=== PATIENT | female | born 1965 | race African-American/Black ===

== ENCOUNTER 2016-07-22 11:34 | Inpatient (IN) | payer OTHER ==
[2016-07-22 12:27] VITALS: BMI 33.0
--- NOTE | 2016-07-22 13:56 | HP ---
COWS - Scale Resting Pulse: 0= HI 80 or Below Sweatin= Chills/Flushing Restless Observation: 3= Extraneous Movement Pupil Size: 2= Moderately Dilated Bone or Joint Aches: 4=Acute Joint/Muscle Pain Runny Nose/ Eye Tearin= Runny Nose/Eyes GI Upset > 30mins: 2= Nausea/Diarrhea (NAUSEA) Tremor Observation: 1= Tremor [place], Not Seen Yawning Observation: 1= 1-2x During Session Anxiety or Irritability: 2=Irritable/Anxious Goose Flesh Skin: 0=Smooth Skin COWS Score: 18 Admission ROS S - [facility] Chief Complaint: DETOX TX FOR PERCOCETS DEPENDENCE Allergies/Adverse Reactions: Allergies Allergy/AdvReac Type Severity Reaction Status Date / Time No Known Allergies Allergy Verified 07/22/16 12:50 History of Present Illness: 51 Y/O AA/FEMALE WITH A HX OF RX PERCOCETS DEPENDENCE/MISUSE SEEKING DETOX TX. FIRST TIME HERE. Exam Limitations: No Limitations - Ebola screening Have you traveled outside of the country in the last 21 days: No Have you had contact with anyone from an Ebola affected area: No Have you been sick,other than usual withdrawal symptoms: No Do you have a fever: No - Review of Systems Constitutional: Chills, Loss of Appetite, Night Sweats, Changes in sleep EENT: reports: Blurred Vision (WEARS GLASSES), Tearing, Nose Congestion, Dental Problems (UPPER/LOWER DENTURES) Respiratory: reports: No Symptoms reported Cardiac: reports: Lightheadedness, Palpitations (DUE TO ANXIETY ATTACKS) GI: reports: Constipated, Diarrhea, Nausea, Vomiting, Indigestion, Abdominal cramping : reports: No Symptoms Reported Musculoskeletal: reports: Back Pain, Joint Pain, Muscle Pain Integumentary: reports: No Symptoms Reported Neuro: reports: Headache, Tremors, Unsteady Gait, Dizziness Endocrine: reports: No Symptoms Reported Hematology: reports: Anemia (NO CURRENT MED) Psychiatric: reports: Orientated x3, Agitated, Anxious, Depressed (ON MEDS) Other Systems: Reviewed and Negative Patient History - Patient Medical History Hx Anemia: Yes (NOT CURRENTLY ON MEDS) Hx Asthma: No Hx Chronic Obstructive Pulmonary Disease (COPD): No Hx Cardiac Disorders: No Hx Hypertension: Yes (ON INDERAL) Hx Hypercholesterolemia: No HX Cerebrovascular Accident: No Hx Seizures: No Hx Diabetes: No Hx Gastrointestinal Disorders: Yes (HX ULCERATIVE COLITIS-ON LIALDA DR 1.2 GM TABS 4 TABS PO DAILY;HX DIVERTICU) Hx Genitourinary Disorders: No Hx Sexually Transmitted Disorders: No Hx Renal Disease (ESRD): No Hx Thyroid Disease: No Hx Human Immunodeficiency Virus (HIV): No (NEGATIVE HX) Hx Hepatitis C: No Hx Depression: Yes (ON MEDS) Hx Suicide Attempt: Yes (cut left wrist at age 22;DENIES CURRENT S/H/I) Hx Schizophrenia: No - Patient Surgical History Past Surgical History: Yes Hx Neurologic Surgery: No Hx Cataract Extraction: No Hx Cardiac Surgery: No Hx Lung Surgery: No Hx Breast Surgery: No Hx Breast Biopsy: No Hx Abdominal Surgery: Yes (HYSTERECTOMY 2010) Hx Appendectomy: No Hx Cholecystectomy: No Hx Genitourinary Surgery: No Hx Section: No Hx Orthopedic Surgery: No Hx Hysterectomy: Yes (PARTIAL SX IN 2010) Anesthesia Reaction: No - PPD History Previous Implant?: Yes Documented Results: Negative w/o proof Implanted On Prior R Admission?: No PPD to be Administered?: Yes - Reproductive History Patient is a Female of Child Bearing Age (11 -55 yrs old): Yes (MENOPAUSAL ) LMP comment: 2010 Patient : No - Smoking Cessation Smoking history: Former smoker Have you smoked in the past 12 months: No If you are a former smoker, when did you quit?: 2005 Hx Chewing Tobacco Use: No Initiated information on smoking cessation: No - Substance & Tx. History Hx Alcohol Use: No (DENIES) Hx Substance Use: Yes (PERCOCETS) Substance Use Type: Opiates Hx Substance Use Treatment: Yes ([facility]) - Substances Abused Percocet Route: Oral Frequency: Daily Amount used: 6 tabs. (10-325 mg.) Age of first use: 50 Date of Last Use: 07/21/16 Family Disease History - Family Disease History Family Disease History: Diabetes: Sister, Other: Mother (HTN-), Sister Admission Physical Exam BHS - Vital Signs Vital Signs: Vital Signs - 24 hr 07/22/16 12:23 Temperature 97.6 F Pulse Rate 62 Respiratory 20 Rate Blood Pressure 189/100 - Physical General Appearance: Yes: Moderate Distress, Obese, Irritable, Anxious, Other ( EMOTIONAL UPSET DUE TO BODY ACHES/DISCOMFORT.) HEENTM: Yes: EOMI, Normocephalic, LELO, Pharynx Normal, Nasal Congestion, Rhinorrhea Respiratory: Yes: Chest Non-Tender, Lungs Clear Neck: Yes: Supple, Trachea in good position Breast: Yes: Breast Exam Deferred Cardiology: Yes: Regular Rhythm, Regular Rate, S1, S2 Abdominal: Yes: Normal Bowel Sounds, Non Tender, Soft Genitourinary: Yes: Other (N/C) Back: Yes: Within Normal Limits Musculoskeletal: Yes: full range of Motion, Gait Steady, Muscle Pain Extremities: Yes: Normal Range of Motion, Non-Tender Neurological: Yes: funeral professional II-XII NML intact, Fully Oriented, Alert, Motor Strength 5/5 Integumentary: Yes: Dry, Warm Lymphatic: Yes: Within Normal Limits - Diagnostic (1) Opioid dependence with withdrawal Current Visit: Yes Status: Acute (2) History of ulcerative colitis Current Visit: Yes Status: Chronic (3) History of diverticulitis of colon Current Visit: Yes Status: Chronic (4) History of anemia Current Visit: Yes Status: Acute (5) Hypertension Current Visit: Yes Status: Chronic Qualifiers: Hypertension type: essential hypertension Qualified Code(s): I10 - Essential (primary) hypertension Cleared for Admission [facility] - Detox or Rehab [facility] Level of Care: Medically Managed Detox Regimen/Protocol: Methadone [facility] Breath Alcohol Content Breath Alcohol Content: 0 Urine Pregancy Test - Result Urine Test Results: Negative- NO Line Present Urine Drug Screen - Results Drug Screen Negative: No Urine Drug Screen Results: OXY-Oxycodone
[2016-07-22] MEDS ORDERED: P-EPHED 60MG/TRIPROLIDI 2.5MG TABLET PO PRN (14:18)
[2016-07-22] MEDS ORDERED: diphenhydrAMINE HCL 50 MG CAPSULE PO PRN (14:18)
[2016-07-22] MEDS ORDERED: MAGNESIUM CITRATE 300 ML BOTTLE PO PRN (14:18)
[2016-07-22] MEDS ORDERED: LOPERAMIDE HCL 2 MG CAPSULE PO PRN (14:18)
[2016-07-22] MEDS ORDERED: MENTHOL/PHENOL 1 EACH UD MM PRN (14:18)
[2016-07-22] MEDS ORDERED: guaiFENesin/D-METHORPHAN HB 10 ML UNIT-DOSE CUPS PO PRN (14:18)
[2016-07-22] MEDS ORDERED: PATIENT'S OWN MEDICATION (NON-FORMULARY) (Metronidazole [Flagyl -] 500 MG) PO SCH (14:30)
[2016-07-22] MEDS ORDERED: METHADONE HCL 10 MG TABLET (FOR DETOX USE ONLY) PO ONE ×2 (14:38→23:00)
[2016-07-22] MEDS: MESALAMINE PO SCH (16:01)
[2016-07-22] MEDS: PATIENT'S OWN MEDICATION (NON-FORMULARY) (Ciprofloxacin [Cipro -] 500 MG) PO SCH (17:59)
[2016-07-22] MEDS: IBUPROFEN 400 MG TABLET (FP) PO PRN (18:27)
[2016-07-22] MEDS: diazePAM 5 MG TABLET PO PRN ×2 (18:27→22:38)
[2016-07-22 20:34] LABS: URINE APPEARANCE CLEAR; URINE BILIRUBIN NEGATIVE (NEGATIVE); URINE BLOOD NEGATIVE (NEGATIVE); URINE COLOR COLORLESS; URINE GLUCOSE (UA) 1+ (NEGATIVE); URINE KETONE NEGATIVE (NEGATIVE); URINE LEUK ESTERASE NEGATIVE (NEGATIVE); URINE NITRITE NEGATIVE (NEGATIVE); URINE PROTEIN NEGATIVE (NEGATIVE); URINE UROBILINOGEN NEGATIVE E.U./dl (0.2-1.0)
[2016-07-22] MEDS: PROPRANOLOL HCL 10 MG TABLET (FP) PO SCH (22:38)
[2016-07-22] MEDS: CYCLOBENZAPRINE HCL 10 MG TABLET (FP) PO SCH (22:38)
[2016-07-22] MEDS: THIAMINE HCL 100 MG TABLET (FP) PO SCH (22:39)
[2016-07-22] MEDS: MAG HYDROX/AL HYDROX/SIMETH 30 ML UNIT-DOSE CUP PO PRN (22:47)
[2016-07-22] MEDS: PATIENT'S OWN MEDICATION (NON-FORMULARY) (Metronidazole [Flagyl -] 500 MG) PO SCH (22:54)
[2016-07-23] MEDS: PATIENT'S OWN MEDICATION (NON-FORMULARY) (Ciprofloxacin [Cipro -] 500 MG) PO SCH ×2 (06:47→17:49)
[2016-07-23] MEDS: PATIENT'S OWN MEDICATION (NON-FORMULARY) (Metronidazole [Flagyl -] 500 MG) PO SCH ×3 (06:48→22:46)
[2016-07-23] MEDS: CYCLOBENZAPRINE HCL 10 MG TABLET (FP) PO SCH ×3 (06:48→22:45)
[2016-07-23] MEDS: PROPRANOLOL HCL 10 MG TABLET (FP) PO SCH ×3 (06:48→23:50)
[2016-07-23] MEDS: MAGNESIUM HYDROX 2400MG/30ML ORAL SUSPENSION 30 ML CUP PO PRN (06:51)
[2016-07-23] MEDS ORDERED: HYDROCORTISONE 1% TOPICAL CREAM 30 GM TUBE TP PRN (09:41)
[2016-07-23] MEDS ORDERED: ERGOCALCIFEROL (VITAMIN D2) 50,000 UNIT CAPSULE (FP) PO SCH (10:00)
[2016-07-23] MEDS ORDERED: METHADONE HCL 10 MG TABLET (FOR DETOX USE ONLY) PO ONE (10:00)
[2016-07-23 10:07] LABS: MCH 27.5 pg (25.7-33.7); MCHC 33.7 g/dl (32.0-36.0); MEAN CELL VOLUME 81.6 fl (80-96); PLATELET COUNT 256 K/MM3 (134-434); WHITE BLOOD COUNT 5.5 K/mm3 (4.0-10.0)
[2016-07-23 10:30] LABS: ALBUMIN 4.4 g/dl (3.4-5.0); BILIRUBIN,TOTAL 0.4 mg/dL (0.2-1.0); CALCIUM 9.6 mg/dL (8.5-10.1); TOT PROT 7.9 g/dl (6.4-8.2)
--- NOTE | 2016-07-23 10:57 | PN ---
S COWS - Scale Resting Pulse: 0= [place] 80 or Below Sweatin=Flushed/Facial Moisture Restless Observation: 1= Difficult to Sit Still Pupil Size: 0= Normal to Room Light Bone or Joint Aches: 2= Severe Diffuse Aches Runny Nose/ Eye Tearin= Runny Nose/Eyes GI Upset > 30mins: 2= Nausea/Diarrhea Tremor Observation of Outstretched Hands: 2= Slight Tremor Visible Yawning Observation: 2= >3x During Session Anxiety or Irritability: 2=Irritable/Anxious Goose Flesh Skin: 3=Piloerection COWS Score: 18 S Progress Note (SOAP) Subjective: nausea chills sweats body aches teary eyes Objective: 07/23/16 10:54 Vital Signs Temperature 97.7 F 07/23/16 10:39 Pulse Rate 58 L 07/23/16 10:39 Respiratory Rate 16 07/23/16 10:39 Blood Pressure 143/85 07/23/16 10:39 O2 Sat by Pulse Oximetry (%) Laboratory Tests 07/22/16 07/23/16 07/23/16 15:00 06:00 06:00 WBC 5.5 RBC 4.26 Hgb 11.7 Hct 34.8 MCV 81.6 MCHC 33.7 RDW 17.0 H Plt Count 256 MPV 10.0 Sodium 142 Potassium 3.9 Chloride 106 Carbon Dioxide 26 Anion Gap 10 BUN 12 Creatinine 1.0 Creat Clearance w eGFR 58.93 Random Glucose 102 Calcium 9.6 Total Bilirubin 0.4 AST 24 ALT 37 Alkaline Phosphatase 170 H Total Protein 7.9 Albumin 4.4 Urine Color Colorless Urine Appearance Clear Urine pH 7.0 Ur Specific [place] 1.005 Urine Protein Negative Urine Glucose (UA) 1+ H Urine Ketones Negative Urine Blood Negative Urine Nitrite Negative Urine Bilirubin Negative Urine Urobilinogen Negative Ur Leukocyte Esterase Negative awake/alert ambulating no acute distress Assessment: 07/23/16 10:55 withdrawal sx Plan: continue detox increase fluids
[2016-07-23] MEDS: PRENATAL VITAMINS W/ FOLIC ACID TABLET (FP) PO SCH (11:30)
[2016-07-23] MEDS: MESALAMINE PO SCH (11:31)
[2016-07-23] MEDS: diazePAM 5 MG TABLET PO PRN ×3 (11:33→22:46)
[2016-07-23 11:55] LABS: SICKLE CELL SCREEN NEGATIVE (NEGATIVE)
[2016-07-23] MEDS: GABAPENTIN 400 MG CAPSULE (FP) PO SCH ×2 (13:43→22:45)
--- NOTE | 2016-07-23 15:27 | CONSULT ---
[facility] Psychiatric Consult - Data Date of interview: 07/23/16 Admission source: [facility] Identifying data: First admission to [facility] for this 51 y/o AA female seeking detox treatment for opiate dependence.Patient is ,a mother of six ,domiciled,unemployed and supported on Public Assistance. Substance Abuse History: - Smoking Cessation. Smoking history: Former smoker. Have you smoked in the past 12 months: No. If you are a former smoker, when did you quit?: 2005. Hx Chewing Tobacco Use: No. Initiated information on smoking cessation: No. - Substance & Tx. History. Hx Alcohol Use: No (DENIES) . Hx Substance Use: Yes (PERCOCETS). Substance Use Type: Opiates. Hx Substance Use Treatment: Yes ([facility] - Substances Abused. Percocet. Route: Oral. Frequency: Daily. Amount used: 6 tabs. (10 -325 mg.). Age of first use: 50. Date of Last Use: 07/21/16. Confirmed by patient. Medical History: Anemia,diverticulosis,ulcerative colitis and history of partial hysterectomy (2010). Psychiatric History: Diagnosed with Bipolar Disorder.Prescibed seroquel 300 mg/ hs + wellbutrin and propanolol.Patient reports a history of more than five psychiatric hospitalizations.Known to [facility] and [facility].Ms López gets OPD care at the [facility] located in [place], [place].Patient denies history of suicide attempts. Physical/Sexual Abuse/Trauma History: Patient denies. Additional Comment: Urine Drug Screen Results: OXY-Oxycodone.Noted. Mental Status Exam - Mental Status Exam Alert and Oriented to: Time, Place, Person Cognitive Function: Good Patient Appearance: Well Groomed Mood: Hopeful, Euthymic Affect: Appropriate, Normal Range Patient Behavior: Fatigued, Appropriate, Cooperative Speech Pattern: Clear, Appropriate Voice Loudness: Normal Thought Process: Goal Oriented Thought Disorder: Not Present Hallucinations: Denies Suicidal Ideation: Denies Homicidal Ideation: Denies Insight/Judgement: Fair Sleep: Poorly Appetite: Good Muscle strength/Tone: Normal Gait/Station: Normal Psychiatric Findings - Problem List ([place] 1, 2,3) (1) Opioid dependence with withdrawal Current Visit: Yes Status: Acute (2) Bipolar disorder Current Visit: Yes Status: Chronic (3) History of anemia Current Visit: Yes Status: Acute (4) History of diverticulitis of colon Current Visit: Yes Status: Chronic (5) History of ulcerative colitis Current Visit: Yes Status: Chronic (6) Hypertension Current Visit: Yes Status: Chronic Qualifiers: Hypertension type: essential hypertension Qualified Code(s): I10 - Essential (primary) hypertension (7) Insomnia Current Visit: Yes Status: Acute - Initial Treatment Plan Initial Treatment Plan: Psychoeducation.Detoxification.Medications : seroquel 200 mg po hs (reduced) + wellbutrin XL 300 mg po daily.Side effects/benefits discussed with patient.Made aware of risk for ovsersedation/falls,abnormal involuntary movements,metabolic syndrome,seizures.She reports no prior history of adverse effects and she is eager to resume her medications.Confirmed by pharmacy claims of 07/21/16.NO need for scripts at discharge.Observation.Will titrate seroquel as clinically indicated.
[2016-07-23] MEDS: IBUPROFEN 400 MG TABLET (FP) PO PRN (15:43)
--- NOTE | 2016-07-23 16:30 | EKG ---
Test Reason : Blood Pressure : / mmHG Vent. Rate : 061 BPM Atrial Rate : 061 BPM P-R Int : 144 ms QRS Dur : 082 ms QT Int : 410 ms P-R-T Axes : 029 012 038 degrees QTc Int : 412 ms NORMAL SINUS RHYTHM MINIMAL VOLTAGE CRITERIA FOR LVH, MAY BE NORMAL VARIANT T WAVE ABNORMALITY, CONSIDER ANTEROLATERAL ISCHEMIA ABNORMAL ECG NO PREVIOUS ECGS AVAILABLE Confirmed by KATTY CHEN MD ([id number]) on 07/23/2016 4:30:20 PM Referred By: Confirmed By:KATTY CHEN MD
[2016-07-23] MEDS: MAG HYDROX/AL HYDROX/SIMETH 30 ML UNIT-DOSE CUP PO PRN (17:48)
[2016-07-23] MEDS: THIAMINE HCL 100 MG TABLET (FP) PO SCH (22:45)
[2016-07-23] MEDS: QUEtiapine FUMARATE 200 MG TABLET PO SCH (22:46)
[2016-07-24] MEDS: PROPRANOLOL HCL 10 MG TABLET (FP) PO SCH ×3 (06:24→22:42)
[2016-07-24] MEDS: CYCLOBENZAPRINE HCL 10 MG TABLET (FP) PO SCH ×3 (06:25→22:42)
[2016-07-24] MEDS: PATIENT'S OWN MEDICATION (NON-FORMULARY) (Metronidazole [Flagyl -] 500 MG) PO SCH ×3 (06:26→22:43)
[2016-07-24] MEDS: GABAPENTIN 400 MG CAPSULE (FP) PO SCH ×3 (06:26→22:42)
[2016-07-24] MEDS: PATIENT'S OWN MEDICATION (NON-FORMULARY) (Ciprofloxacin [Cipro -] 500 MG) PO SCH ×2 (06:28→17:09)
[2016-07-24] MEDS: ACETAMINOPHEN 325 MG TABLET (FP) PO PRN ×3 (08:00→17:10)
[2016-07-24] MEDS ORDERED: METHADONE HCL 5 MG TABLET (FOR DETOX USE ONLY) PO ONE (10:00)
[2016-07-24] MEDS: PATIENT'S OWN MEDICATION (NON-FORMULARY) (Diclofenac Sodium [Diclofenac Sodium Er] 100 MG) PO SCH (10:27)
[2016-07-24] MEDS: MESALAMINE PO SCH (10:29)
[2016-07-24] MEDS: PRENATAL VITAMINS W/ FOLIC ACID TABLET (FP) PO SCH (10:29)
[2016-07-24] MEDS: diazePAM 5 MG TABLET PO PRN ×2 (10:33→22:42)
--- NOTE | 2016-07-24 11:34 | PN ---
S COWS - Scale Resting Pulse: 0= [place] 80 or Below Sweatin=Flushed/Facial Moisture Restless Observation: 1= Difficult to Sit Still Pupil Size: 0= Normal to Room Light Bone or Joint Aches: 2= Severe Diffuse Aches Runny Nose/ Eye Tearin= Nasal Congestion GI Upset > 30mins: 0= None Tremor Observation of Outstretched Hands: 2= Slight Tremor Visible Yawning Observation: 2= >3x During Session Anxiety or Irritability: 2=Irritable/Anxious Goose Flesh Skin: 3=Piloerection COWS Score: 15 BHS Progress Note (SOAP) Subjective: agitation anxiety sweats back pain shakes Objective: 07/24/16 11:33 Vital Signs Temperature 97.9 F 07/24/16 10:17 Pulse Rate 67 07/24/16 10:17 Respiratory Rate 16 07/24/16 10:17 Blood Pressure 125/81 07/24/16 10:17 O2 Sat by Pulse Oximetry (%) Laboratory Tests 07/22/16 07/23/16 07/23/16 15:00 06:00 06:00 WBC 5.5 RBC 4.26 Hgb 11.7 Hct 34.8 MCV 81.6 MCHC 33.7 RDW 17.0 H Plt Count 256 MPV 10.0 Sickle Cell Screen Negative Sodium 142 Potassium 3.9 Chloride 106 Carbon Dioxide 26 Anion Gap 10 BUN 12 Creatinine 1.0 Creat Clearance w eGFR 58.93 Random Glucose 102 Calcium 9.6 Total Bilirubin 0.4 AST 24 ALT 37 Alkaline Phosphatase 170 H Total Protein 7.9 Albumin 4.4 Urine Color Colorless Urine Appearance Clear Urine pH 7.0 Ur Specific [place] 1.005 Urine Protein Negative Urine Glucose (UA) 1+ H Urine Ketones Negative Urine Blood Negative Urine Nitrite Negative Urine Bilirubin Negative Urine Urobilinogen Negative Ur Leukocyte Esterase Negative RPR Titer 07/23/16 06:00 WBC RBC Hgb Hct MCV MCHC RDW Plt Count MPV Sickle Cell Screen Sodium Potassium Chloride Carbon Dioxide Anion Gap BUN Creatinine Creat Clearance w eGFR Random Glucose Calcium Total Bilirubin AST ALT Alkaline Phosphatase Total Protein Albumin Urine Color Urine Appearance Urine pH Ur Specific [place] Urine Protein Urine Glucose (UA) Urine Ketones Urine Blood Urine Nitrite Urine Bilirubin Urine Urobilinogen Ur Leukocyte Esterase RPR Titer Nonreactive awake/alert ambulating no acute distress Assessment: 07/24/16 11:33 withdrawal sx Plan: continue detox increase fluids lidocaine patch
[2016-07-24] MEDS: LIDOCAINE 5% TOPICAL PATCH TP SCH (12:26)
[2016-07-24] MEDS: QUEtiapine FUMARATE 200 MG TABLET PO SCH (22:42)
[2016-07-24] MEDS: THIAMINE HCL 100 MG TABLET (FP) PO SCH (22:43)
[2016-07-24] MEDS: MAGNESIUM HYDROX 2400MG/30ML ORAL SUSPENSION 30 ML CUP PO PRN (22:50)
[2016-07-25] MEDS: PROPRANOLOL HCL 10 MG TABLET (FP) PO SCH ×3 (05:47→22:39)
[2016-07-25] MEDS: PATIENT'S OWN MEDICATION (NON-FORMULARY) (Metronidazole [Flagyl -] 500 MG) PO SCH ×3 (05:47→22:39)
[2016-07-25] MEDS: PATIENT'S OWN MEDICATION (NON-FORMULARY) (Ciprofloxacin [Cipro -] 500 MG) PO SCH ×2 (05:48→17:30)
[2016-07-25] MEDS: CYCLOBENZAPRINE HCL 10 MG TABLET (FP) PO SCH ×3 (05:49→22:38)
[2016-07-25] MEDS: GABAPENTIN 400 MG CAPSULE (FP) PO SCH ×3 (05:49→22:40)
[2016-07-25] MEDS ORDERED: METHADONE HCL 5 MG TABLET (FOR DETOX USE ONLY) PO ONE (10:00)
[2016-07-25] MEDS: PATIENT'S OWN MEDICATION (NON-FORMULARY) (Diclofenac Sodium [Diclofenac Sodium Er] 100 MG) PO SCH (11:22)
[2016-07-25] MEDS: LIDOCAINE 5% TOPICAL PATCH TP SCH (11:24)
[2016-07-25] MEDS: MESALAMINE PO SCH (11:25)
[2016-07-25] MEDS: PRENATAL VITAMINS W/ FOLIC ACID TABLET (FP) PO SCH (11:25)
[2016-07-25] MEDS: diazePAM 5 MG TABLET PO PRN (11:27)
--- NOTE | 2016-07-25 17:21 | PN ---
S Progress Note (SOAP) Subjective: Nausea, H/A, Sweating, Interrupted sleep, Tremors, Body aches. Objective: PT. A & O X 2 (DISORIENTED ABOUT DAY / DATE). PT. OBSERVED AMBULATING ON UNIT. 07/25/16 17:19 Vital Signs Temperature 97.4 F L 07/25/16 14:37 Pulse Rate 76 07/25/16 14:37 Respiratory Rate 18 07/25/16 14:37 Blood Pressure 133/92 07/25/16 14:37 O2 Sat by Pulse Oximetry (%) Laboratory Last Values WBC 5.5 K/mm3 (4.0-10.0) 07/23/16 06:00 RBC 4.26 M/mm3 (3.60-5.2) 07/23/16 06:00 Hgb 11.7 GM/dL (10.7-15.3) 07/23/16 06:00 Hct 34.8 % (32.4-45.2) 07/23/16 06:00 MCV 81.6 fl (80-96) 07/23/16 06:00 MCHC 33.7 g/dl (32.0-36.0) 07/23/16 06:00 RDW 17.0 % (11.6-15.6) H 07/23/16 06:00 Plt Count 256 K/MM3 (134-434) 07/23/16 06:00 MPV 10.0 fl (7.5-11.1) 07/23/16 06:00 Sickle Cell Screen Negative (NEGATIVE) 07/23/16 06:00 Sodium 142 mmol/L (136-145) 07/23/16 06:00 Potassium 3.9 mmol/L (3.5-5.1) 07/23/16 06:00 Chloride 106 mmol/L (98-107) 07/23/16 06:00 Carbon Dioxide 26 mmol/L (21-32) 07/23/16 06:00 Anion Gap 10 (8-16) 07/23/16 06:00 BUN 12 mg/dL (7-18) 07/23/16 06:00 Creatinine 1.0 mg/dL (0.55-1.02) 07/23/16 06:00 Creat Clearance w eGFR 58.93 (>60) 07/23/16 06:00 Random Glucose 102 mg/dL (74-106) 07/23/16 06:00 Calcium 9.6 mg/dL (8.5-10.1) 07/23/16 06:00 Total Bilirubin 0.4 mg/dL (0.2-1.0) 07/23/16 06:00 AST 24 U/L (15-37) 07/23/16 06:00 ALT 37 U/L (12-78) 07/23/16 06:00 Alkaline Phosphatase 170 U/L (45-117) H 07/23/16 06:00 Total Protein 7.9 g/dl (6.4-8.2) 07/23/16 06:00 Albumin 4.4 g/dl (3.4-5.0) 07/23/16 06:00 Urine Color Colorless 07/22/16 15:00 Urine Appearance Clear 07/22/16 15:00 Urine pH 7.0 (5.0-8.0) 07/22/16 15:00 Ur Specific [place] 1.005 (1.001-1.035) 07/22/16 15:00 Urine Protein Negative (NEGATIVE) 07/22/16 15:00 Urine Glucose (UA) 1+ (NEGATIVE) H 07/22/16 15:00 Urine Ketones Negative (NEGATIVE) 07/22/16 15:00 Urine Blood Negative (NEGATIVE) 07/22/16 15:00 Urine Nitrite Negative (NEGATIVE) 07/22/16 15:00 Urine Bilirubin Negative (NEGATIVE) 07/22/16 15:00 Urine Urobilinogen Negative E.U./dl (0.2-1.0) 07/22/16 15:00 Ur Leukocyte Esterase Negative (NEGATIVE) 07/22/16 15:00 RPR Titer Nonreactive (NONREACTIVE) 07/23/16 06:00 LABS NOTED. Assessment: 07/25/16 17:20 WITHDRAWAL SYMPTOMS. Plan: CONTINUE DETOX. ADVISED PATIENT TO FOLLOW-UP WITH [facility] / REHAB MEDICAL PROVIDER AFTER DISCHARGE FROM DETOX FOR GENERAL MEDICAL ASSESSMENT AND FOR ABNORMAL ADMISSION LAB VALUES.
[2016-07-25] MEDS: MAG HYDROX/AL HYDROX/SIMETH 30 ML UNIT-DOSE CUP PO PRN (19:50)
[2016-07-25] MEDS: QUEtiapine FUMARATE 200 MG TABLET PO SCH (22:40)
[2016-07-25] MEDS: THIAMINE HCL 100 MG TABLET (FP) PO SCH (22:40)
[2016-07-26] MEDS: CYCLOBENZAPRINE HCL 10 MG TABLET (FP) PO SCH ×3 (06:10→22:35)
[2016-07-26] MEDS: PROPRANOLOL HCL 10 MG TABLET (FP) PO SCH ×3 (06:10→22:35)
[2016-07-26] MEDS: hydrOXYzine PAMOATE 25 MG CAPSULE (FP) PO PRN ×2 (06:17→12:10)
[2016-07-26] MEDS: PATIENT'S OWN MEDICATION (NON-FORMULARY) (Ciprofloxacin [Cipro -] 500 MG) PO SCH ×2 (06:18→17:26)
[2016-07-26] MEDS: GABAPENTIN 400 MG CAPSULE (FP) PO SCH ×3 (06:18→22:35)
[2016-07-26] MEDS: PATIENT'S OWN MEDICATION (NON-FORMULARY) (Metronidazole [Flagyl -] 500 MG) PO SCH ×3 (06:18→22:35)
[2016-07-26] MEDS: ACETAMINOPHEN 325 MG TABLET (FP) PO PRN ×2 (06:19→12:08)
[2016-07-26] MEDS ORDERED: METHADONE HCL 10 MG TABLET (FOR DETOX USE ONLY) PO ONE (10:00)
[2016-07-26] MEDS: PATIENT'S OWN MEDICATION (NON-FORMULARY) (Diclofenac Sodium [Diclofenac Sodium Er] 100 MG) PO SCH (10:47)
[2016-07-26] MEDS: MESALAMINE PO SCH (10:47)
[2016-07-26] MEDS: PRENATAL VITAMINS W/ FOLIC ACID TABLET (FP) PO SCH (10:47)
[2016-07-26] MEDS: LIDOCAINE 5% TOPICAL PATCH TP SCH (10:50)
[2016-07-26] MEDS: MAG HYDROX/AL HYDROX/SIMETH 30 ML UNIT-DOSE CUP PO PRN (10:51)
--- NOTE | 2016-07-26 16:23 | PN ---
S Progress Note (SOAP) Subjective: Nausea, tremor, chills, sweating, interrupted sleep Objective: 07/26/16 16:22 Last Vital Signs Temp Pulse Resp BP Pulse Ox 98.2 F 72 18 139/91 07/26/16 14:24 07/26/16 14:24 07/26/16 14:24 07/26/16 14:24 Laboratory Tests 07/22/16 07/23/16 07/23/16 15:00 06:00 06:00 WBC 5.5 RBC 4.26 Hgb 11.7 Hct 34.8 MCV 81.6 MCHC 33.7 RDW 17.0 H Plt Count 256 MPV 10.0 Sickle Cell Screen Negative Sodium 142 Potassium 3.9 Chloride 106 Carbon Dioxide 26 Anion Gap 10 BUN 12 Creatinine 1.0 Creat Clearance w eGFR 58.93 Random Glucose 102 Calcium 9.6 Total Bilirubin 0.4 AST 24 ALT 37 Alkaline Phosphatase 170 H Total Protein 7.9 Albumin 4.4 Urine Color Colorless Urine Appearance Clear Urine pH 7.0 Ur Specific [place] 1.005 Urine Protein Negative Urine Glucose (UA) 1+ H Urine Ketones Negative Urine Blood Negative Urine Nitrite Negative Urine Bilirubin Negative Urine Urobilinogen Negative Ur Leukocyte Esterase Negative RPR Titer 07/23/16 06:00 WBC RBC Hgb Hct MCV MCHC RDW Plt Count MPV Sickle Cell Screen Sodium Potassium Chloride Carbon Dioxide Anion Gap BUN Creatinine Creat Clearance w eGFR Random Glucose Calcium Total Bilirubin AST ALT Alkaline Phosphatase Total Protein Albumin Urine Color Urine Appearance Urine pH Ur Specific [place] Urine Protein Urine Glucose (UA) Urine Ketones Urine Blood Urine Nitrite Urine Bilirubin Urine Urobilinogen Ur Leukocyte Esterase RPR Titer Nonreactive Labs noted: UA: 1+ glucose Assessment: 07/26/16 16:22 Withdrawal symptoms Noted with glycosuria Plan: Continue detox Glycosuria: encouraged to drink lots of water, check finger stick ac meal, consider starting oral antidiabetic if warranted, insulin lispro sliding scale with coverage
[2016-07-26] MEDS: THIAMINE HCL 100 MG TABLET (FP) PO SCH (22:36)
[2016-07-26] MEDS: QUEtiapine FUMARATE 200 MG TABLET PO SCH (22:36)
[2016-07-27] MEDS: PATIENT'S OWN MEDICATION (NON-FORMULARY) (Ciprofloxacin [Cipro -] 500 MG) PO SCH (05:58)
[2016-07-27] MEDS ORDERED: METHADONE HCL 5 MG TABLET (FOR DETOX USE ONLY) PO ONE (06:00)
[2016-07-27] MEDS: CYCLOBENZAPRINE HCL 10 MG TABLET (FP) PO SCH (06:00)
[2016-07-27] MEDS: GABAPENTIN 400 MG CAPSULE (FP) PO SCH (06:00)
[2016-07-27] MEDS: PROPRANOLOL HCL 10 MG TABLET (FP) PO SCH (06:00)
[2016-07-27] MEDS: PATIENT'S OWN MEDICATION (NON-FORMULARY) (Metronidazole [Flagyl -] 500 MG) PO SCH (06:00)
[2016-07-27] MEDS ORDERED: INSULIN SLIDING SCALE (NOVOLOG) 1 VIAL SQ SCH (07:00)
[2016-07-27 07:06] VITALS: TEMP 98.1
--- NOTE | 2016-07-27 08:53 | DS ---
[facility] Detox Discharge Summary Admission Date: 07/22/16 Discharge Date: 07/27/16 - History Present History: Opioid Dependence - Physical Exam Results Vital Signs: Vital Signs Temperature 98.1 F 07/27/16 07:05 Pulse Rate 74 07/27/16 07:05 Respiratory Rate 18 07/27/16 07:05 Blood Pressure 114/21 07/27/16 07:05 O2 Sat by Pulse Oximetry (%) - Treatment Hospital Course: Detox Protocol Followed, Detoxed Safely, Responded well, Discharged Condition Good - Medication Discharge Medications: Ambulatory Orders Bupropion HCl [Bupropion Xl] 300 mg PO AM 07/22/16 Ciprofloxacin [Cipro (Restricted To Id)] 500 mg PO BID 07/22/16 Cyanocobalamin [Vitamin B12 -] 100 mcg PO DAILY 07/22/16 Cyanocobalamin [Vitamin B12 -] 100 mcg PO DAILY 07/22/16 Diclofenac Sodium [Diclofenac Sodium ER] 100 mg PO DAILY 07/22/16 Gabapentin [Neurontin -] 400 mg PO TID 07/22/16 Mesalamine [Lialda] 4 tab PO DAILY 07/22/16 Metronidazole [Flagyl -] 500 mg PO Q8H 07/22/16 Omeprazole 40 mg PO DAILY 07/22/16 Propranolol HCl [Inderal -] 10 mg PO TID 07/22/16 Quetiapine Fumarate [Seroquel -] 300 mg PO HS 07/22/16 Tizanidine HCl [Zanaflex] 4 mg PO TID PRN 07/22/16 - Diagnosis (1) History of anemia Current Visit: Yes Status: Chronic (2) Opioid dependence with withdrawal Current Visit: Yes Status: Chronic (3) Bipolar disorder Current Visit: Yes Status: Chronic (4) History of diverticulitis of colon Current Visit: Yes Status: Chronic (5) History of ulcerative colitis Current Visit: Yes Status: Chronic (6) Hypertension Current Visit: Yes Status: Chronic Qualifiers: Hypertension type: essential hypertension Qualified Code(s): I10 - Essential (primary) hypertension - AMA Did Patient Leave Against Medical Advice: No
[2016-07-27] MEDS: LIDOCAINE 5% TOPICAL PATCH TP SCH (09:20)
[2016-07-27] MEDS: MAG HYDROX/AL HYDROX/SIMETH 30 ML UNIT-DOSE CUP PO PRN (09:20)
[2016-07-27] MEDS: ACETAMINOPHEN 325 MG TABLET (FP) PO PRN (09:22)
[2016-07-27 09:56] VITALS: BP 140/88; PULSE 86
== END 2016-07-27 09:58 | disposition home or self-care (01) | DRG 773 ==
LOC: YASAS 11:34 → Y6N 13:54
PROVIDERS: ADMIT Internal Medicine Addiction Medicine; ATTEND Internal Medicine Addiction Medicine
PROC: HZ2ZZZZ Detoxification Services for Substance Abuse Treatment (ICD-10-PCS; principal; 2016-07-27)
DX: F11.23 Opioid dependence with withdrawal (principal); F31.9 Bipolar disorder, unspecified; G47.00 Insomnia, unspecified; I10 Essential (primary) hypertension; D64.9 Anemia, unspecified; Z87.19 Personal history of other diseases of the digestive system
CPT/HCPCS: 36415; 80053; 81003; 85027; 85660; 86593; 93005; 93010

== ENCOUNTER 2020-11-18 13:46 | Emergency (ER) | payer OTHER ==
[2020-11-18 14:38] VITALS: BMI 30.2
[2020-11-18 15:31] LABS: BASO % 0.7 % (0-2.0); EOS % 4.2 % (0-4.5); HEMATOCRIT 37.1 % (32.4-45.2); HEMOGLOBIN 13.2 GM/dL (10.7-15.3); LYMPH % 62.1 % (8-40); MCH 32.4 pg (25.7-33.7); MCHC 35.5 g/dl (32.0-36.0); MEAN CELL VOLUME 91.3 fl (80-96); MEAN PLT VOLUME 8.5 fl (7.5-11.1); MONO % 5.4 % (3.8-10.2); NEUT % 27.6 % (42.8-82.8); PLATELET COUNT 250 10^3/uL (134-434); RBC 4.07 M/mm3 (3.60-5.2); RDW 15.1 % (11.6-15.6); WHITE BLOOD COUNT 6.3 K/mm3 (4.0-10.0)
[2020-11-18 15:58] LABS: CHLORIDE 105 mmol/L (98-107); SODIUM 145 mmol/L (136-145)
[2020-11-18 16:00] LABS: CALCIUM 8.6 mg/dL (8.5-10.1)
[2020-11-18 16:01] LABS: ANION GAP 9 MMOL/L (8-16); BLOOD UREA NITROGEN 7.6 mg/dL (7-18); CO2 30 mmol/L (21-32); GLUCOSE,RANDOM 111 mg/dL (74-106)
[2020-11-18 16:04] LABS: CREATININE 0.9 mg/dL (0.55-1.3); SGOT/AST 237 U/L (15-37); SGPT/ALT 121 U/L (13-61)
[2020-11-18 16:05] LABS: BILIRUBIN,TOTAL 0.5 mg/dL (0.2-1)
[2020-11-18 16:06] LABS: TOT PROT 7.9 g/dl (6.4-8.2)
[2020-11-18 16:07] LABS: ALK PHOS 193 U/L (45-117)
[2020-11-18 17:16] LABS: ANISOCYTOSIS 0; MACROCYTOSIS 0; PLATELET ESTIMATE NORMAL
[2020-11-18 17:44] VITALS: BP 141/92; PULSE 78; TEMP 98.2
== END 2020-11-18 17:50 | disposition home or self-care (01) ==
LOC: JER 13:46
DX: F43.29 Adjustment disorder with other symptoms (principal)
CPT/HCPCS: 36415; 71046-TC-FY; 80053; 82550; 82553; 84443; 84484; 85025; 93005; 93010; 99285-25; C9803; U0003; U0005

== ENCOUNTER 2024-12-08 13:04 | Inpatient (IN) | payer OTHER ==
[2024-12-08] MEDS ORDERED: BENZONATATE 200 MG CAPSULE PO PRN (14:23)
[2024-12-08] MEDS ORDERED: DICYCLOMINE HCL 10 MG CAPSULE PO PRN (14:23)
[2024-12-08] MEDS ORDERED: LOPERAMIDE HCL 2 MG CAPSULE PO PRN (14:23)
[2024-12-08] MEDS ORDERED: BISMUTH SUBSALICYLATE 524 MG/30 ML PO PRN (14:23)
[2024-12-08] MEDS ORDERED: MAG HYDROX/AL HYDROX/SIMETH 30 ML UNIT-DOSE CUP PO PRN (14:23)
[2024-12-08] MEDS ORDERED: BENZOCAINE/MENTHOL (CHLORASEPTIC ) LOZENGE MM PRN (14:23)
[2024-12-08] MEDS ORDERED: guaiFENesin 600 MG TABLET.ER (FP) PO PRN (14:23)
[2024-12-08] MEDS ORDERED: POLYETHYLENE GLYCOL (HEALTHYLAX) 3350 17 GM PACKET PO PRN (14:23)
[2024-12-08] MEDS ORDERED: NALOXONE (NARCAN) HCL 4 MG/0.1 ML SPRAY NS PRN (14:23)
[2024-12-08 14:31] VITALS: BMI 36.2
[2024-12-08] MEDS: ONDANSETRON *ODT* 4 MG TABLET SL PRN (14:43)
[2024-12-08] MEDS: PRENATAL VITAMINS W/ FOLIC ACID TABLET (FP) PO SCH (14:44)
[2024-12-08] MEDS ORDERED: ONDANSETRON *ODT* 4 MG TABLET ONE (14:49)
[2024-12-08] MEDS: BUPRENORPHINE/NALOXONE 0.5 MG/0.125 MG FILM SL ONE (22:02)
[2024-12-08] MEDS: THIAMINE 100 MG TABLET PO SCH (22:02)
[2024-12-08] MEDS: amLODIPine BESYLATE 5 MG TABLET (FP) PO SCH (22:02)
[2024-12-08] MEDS: MELATONIN 5 MG TABLETS PO SCH (22:02)
[2024-12-09] MEDS: hydrOXYzine PAMOATE 25 MG CAPSULE (FP) PO PRN (00:08)
[2024-12-09] MEDS: IBUPROFEN 600 MG TABLET (FP) PO PRN (00:09)
[2024-12-09] MEDS: metFORMIN HCL 500 MG TABLET (FP) PO SCH (07:35)
[2024-12-09] MEDS: HYDROCHLOROTHIAZIDE 25 MG TABLET (FP) PO SCH (09:12)
[2024-12-09] MEDS: METHOCARBAMOL 500 MG TABLET PO PRN (09:12)
[2024-12-09] MEDS: LOSARTAN POTASSIUM 50 MG TABLET PO SCH (09:12)
[2024-12-09] MEDS: PANTOPRAZOLE 20 MG TABLET PO SCH (09:36)
[2024-12-09] MEDS: BUPRENORPHINE/NALOXONE 0.5 MG/0.125 MG FILM SL SCH (09:37)
[2024-12-09 10:24] LABS: GLUCOSE,RANDOM 203.0 mg/dL (74-106); TOT PROT 6.9 g/dl (6.4-8.2)
[2024-12-09 10:25] LABS: CO2 27.0 mmol/L (21-32)
[2024-12-09 10:27] LABS: ALK PHOS 136.0 U/L (40-150)
[2024-12-09 10:30] LABS: CREATININE 0.77 mg/dL (0.55-1.3); SGOT/AST 29.0 U/L (5-34); SGPT/ALT 33.0 U/L (0-55)
[2024-12-09 10:34] LABS: MCHC 34.0 g/dl (32.2-35.5); MEAN CELL VOLUME 82.7 fl (79.4-94.8); MEAN PLT VOLUME 11.4 fl (9.4-12.3); RDW 13.2 % (12.3-16.6)
[2024-12-09] MEDS: ACETAMINOPHEN 325 MG TABLET (FP) PO PRN (17:42)
[2024-12-09] MEDS: QUEtiapine FUMARATE 100 MG TABLET (FP) PO SCH (22:09)
[2024-12-10] MEDS: MAGNESIUM HYDROX 2400MG/30ML ORAL SUSPENSION 30 ML CUP PO PRN (08:28)
[2024-12-10] MEDS: BUPRENORPHINE/NALOXONE 2 MG/0.5 MG FILM PACKET SL SCH (10:04)
[2024-12-10] MEDS: IBUPROFEN 400 MG TABLET (FP) PO PRN (20:15)
[2024-12-11] MEDS: BUPRENORPHINE/NALOXONE 4 MG/1 MG FILM PACKET SL SCH (10:11)
[2024-12-11] MEDS: CELECOXIB 200 MG CAPSULE PO SCH (16:09)
[2024-12-11] MEDS: CELECOXIB 100 MG CAPSULE PO SCH (20:01)
[2024-12-11] MEDS: MELATONIN 5 MG TABLETS PO ONE (21:56)
[2024-12-12 08:58] VITALS: BP 127/82; PULSE 79; RESP 18; TEMP 97.6
[2024-12-12] MEDS: BUPRENORPHINE/NALOXONE 8 MG/2 MG FILM PACKET SL SCH (09:08)
[2024-12-13] MEDS ORDERED: BUPRENORPHINE/NALOXONE 8 MG/2 MG FILM PACKET SL SCH (10:00)
== END 2024-12-12 10:12 | disposition home or self-care (01) | DRG 897 ==
LOC: YASAS 13:04 → Y6N 17:32
PROVIDERS: ADMIT Allergy & Immunology; ATTEND Counselor Addiction (Substance Use Disorder)
PROC: HZ2ZZZZ Detoxification Services for Substance Abuse Treatment (ICD-10-PCS; principal; 2024-12-08)
DX: F11.23 Opioid dependence with withdrawal (principal); F31.9 Bipolar disorder, unspecified; F41.9 Anxiety disorder, unspecified; I10 Essential (primary) hypertension; K21.9 Gastro-esophageal reflux disease without esophagitis; G47.00 Insomnia, unspecified; E78.5 Hyperlipidemia, unspecified; E11.9 Type 2 diabetes mellitus without complications; Z79.84 Long term (current) use of oral hypoglycemic drugs; Z87.19 Personal history of other diseases of the digestive system; Z62.810 Personal history of physical and sexual abuse in childhood
CPT/HCPCS: 36415; 80053; 82962; 85027; 86780; 93005; 93010; Q0162